=== PATIENT | female | born 1995 | race African-American/Black ===

== ENCOUNTER 2020-10-30 15:32 | Emergency (ER) | payer OTHER ==
[~2020-10-30] VITALS: Ht 167.6 cm; Wt 97.1 kg
[2020-10-30 15:48] LABS: URINE BILIRUBIN NEGATIVE (Negative); URINE BLOOD TRACE (Negative); URINE CLARITY CLEAR; URINE COLOR YELLOW; URINE GLUCOSE-RANDOM* NEGATIVE (Negative); URINE KETONES NEGATIVE (Negative); URINE LEUKOCYTES-REFLEX TRACE (Negative); URINE NITRITE-REFLEX NEGATIVE (Negative); URINE PROTEIN (DIPSTICK) TRACE (Negative); URINE SPECIFIC GRAVITY >= 1.030 (1.005-1.035)
[2020-10-30 15:49] VITALS: BP 148/101
[2020-10-30] MEDS ORDERED: TOPICAINE 5113 GM TOP (16:58)
[2020-10-30] MEDS ORDERED: VALTREX1000 MG PO (16:58)
[2020-11-02 12:56] LABS: HSV PCR SOURCE BLISTER
[2020-11-02 22:06] LABS: HSV 1 DNA Positive (Negative); HSV 2 DNA Negative (Negative)
== END 2020-10-30 18:07 | disposition home or self-care (01) ==
LOC: ER 15:32
PROVIDERS: Physician Assistant
DX: A60.00 Herpesviral infection of urogenital system, unspecified (principal)